=== PATIENT | male | born 1950 ===

== ENCOUNTER 2017-06-07 21:27 | Emergency (ER) | payer OTHER ==
[2017-06-07 21:37] VITALS: TEMP 98.4
[2017-06-07] MEDS ORDERED: Albuterol-Ipratrop 3 mg / 0.5 (3 ml) UD INH STA (22:12)
[2017-06-07 22:17] LABS: BASO % 0.6 % (0.0-2.0); EOS # 0.2 K/uL (0.0-0.7); EOS % 3.4 % (0.0-4.0); HEMOGLOBIN 12.4 g/dL (12.0-18.0); LYMPH # 1.8 K/uL (1.0-4.3); LYMPH % 35.2 % (20.0-40.0); MEAN CELL VOLUME 99.6 fl (80.0-94.0); MEAN CORPUSCULAR HEMOGLOBIN 33.2 pg (27.0-31.0); MEAN CORPUSCULAR HGB CONC 33.3 g/dL (33.0-37.0); MEAN PLATELET VOLUME 10.2 fl (7.2-11.7); MONO # 0.6 K/uL (0.0-0.8); MONO % 11.3 % (0.0-10.0); NEUT # 2.6 K/uL (1.8-7.0); NEUT % 49.5 % (50.0-75.0); NRBC % 0.1 % (0.0-0.0); RBC 3.74 Mil/uL (4.40-5.90); RED CELL DISTRIBUTION WIDTH 15.2 % (11.5-14.5); WHITE BLOOD COUNT 5.2 K/uL (4.8-10.8)
[2017-06-07 22:24] LABS: ALB/GLOB RATIO 1.1 (1.0-2.1); ALBUMIN 3.8 g/dL (3.5-5.0); ALT/SGPT 33 U/L (21-72); AST/SGOT 35 U/L (17-59); BLOOD UREA NITROGEN 8 mg/dl (9-20); CALCIUM 8.7 mg/dL (8.4-10.2); GFR AFRICAN-AMERICAN > 60; GFR NON-AFRICAN AMERICAN > 60
[2017-06-07 22:40] LABS: INR 1.1 (0.9-1.2); PARTIAL THROMBOPLASTIN TIME 25.8 Seconds (25.6-37.1); PROTHROMBIN TIME 12.1 Seconds (9.8-13.1)
--- NOTE | 2017-06-07 23:07 | ED PDOC ---
HPI: SOB/CHF/COPD Time Seen by Provider: 06/07/17 21:37 Chief Complaint (Nursing): High Blood Pressure Chief Complaint (Provider): shortness of breath, chest tightness History Per: Patient History/Exam Limitations: no limitations Onset/Duration Of Symptoms: Hrs (x1) Current Symptoms Are (Timing): Still Present Quality: Tightness Additional Complaint(s): 66 y/o male with a past medical history of hypertension and COPD ( noncompliant with medications), presents complaining of shortness of breath for 1 hour. States he developed acute sense of shortness of breath and chest tightness while at home. Reports hes had recent runny nose and cough for 2-3 days. No associated vomiting or diarrhea. States he does not take meds for COPD and hypertension, and has not followed up with any doctors since his last visit. PMD: None Past Medical History Reviewed: Historical Data, Nursing Documentation, Vital Signs Vital Signs: Last Vital Signs Temp 98.4 F 06/07/17 21:35 Pulse 85 06/08/17 00:18 Resp 18 06/08/17 00:18 BP 170/91 H 06/08/17 00:18 Pulse Ox 99 06/08/17 00:30 - Medical History PMH: COPD, HTN Denies: Chronic Kidney Disease - Surgical History Surgical History: No Surg Hx - Family History Family History: States: Unknown Family Hx - Social History Ex-Smoker (has not smoked in the last 12 months): Yes (previous 1 pack/day) - Home Medications Home Medications: Ambulatory Orders Medication Instructions Recorded Albuterol HFA [Ventolin HFA 90 1 puff IH Q4 PRN #1 puff 07/30/16 mcg/actuation (8 g)] Azithromycin [Zithromax] 250 mg PO DAILY #5 tab 07/30/16 Methylprednisolone [Medrol Dose 4 mg PO DAILY #21 mg 07/30/16 Pack (21 tabs)] amLODIPine [Norvasc] 5 mg PO DAILY #30 tab 07/30/16 Albuterol HFA [Ventolin HFA 90 1 - 2 puff IH Q6 PRN #1 inhaler 06/07/17 mcg/actuation (8 g)] amLODIPine [Norvasc] 5 mg PO QAM #30 tab 06/07/17 - Allergies Allergies/Adverse Reactions: Allergies Allergy/AdvReac Type Severity Reaction Status Date / Time No Known Allergies Allergy Verified 07/29/16 18:59 Review of Systems ROS Statement: Except As Marked, All Systems Reviewed And Found Negative Cardiovascular: Positive for: Chest Pain (tightness) Respiratory: Positive for: Cough, Shortness of Breath Gastrointestinal: Negative for: Nausea, Vomiting, Diarrhea Physical Exam - Reviewed Nursing Documentation Reviewed: Yes Vital Signs Reviewed: Yes - Physical Exam Appears: Positive for: Non-toxic, No Acute Distress Head Exam: Positive for: ATRAUMATIC, NORMAL INSPECTION, NORMOCEPHALIC Skin: Positive for: Normal Color, Warm, Dry. Negative for: Diaphoresis Eye Exam: Positive for: EOMI, Normal appearance, PERRL ENT: Positive for: Normal ENT Inspection Neck: Positive for: Normal, Painless ROM, Supple Cardiovascular/Chest: Positive for: Regular Rate, Rhythm. Negative for: Murmur Respiratory: Positive for: Wheezing (bilateral expiratory wheezing). Negative for: Respiratory Distress Gastrointestinal/Abdominal: Positive for: Normal Exam, Soft. Negative for: Tenderness Back: Positive for: Normal Inspection. Negative for: Vertebral Tenderness Extremity: Positive for: Normal ROM. Negative for: Pedal Edema, Deformity Neurologic/Psych: Positive for: Alert, Oriented (x3) - Laboratory Results Result Diagrams: 06/07/17 21:59 06/07/17 21:59 - ECG O2 Sat by Pulse Oximetry: 99 (RA) Pulse Ox Interpretation: Normal Medical Decision Making Medical Decision Making: Initial Impression: 66 year old male with shortness of breath in setting of known COPD and recent URI symptoms Time: 21:38 Initial Plan: --EKG --CMP --Tropnin I --CBC w/ differential --PTT --Prothrombin time --Influenza A B --Chest X-ray --Duoneb 3 ml INH --Peak Flow pre/post treatment --Reevaluation Reassess: --00:28 Labs reviewed and revealed no clinically significant abnormalities. Chest Xray NAD Patient reports of improvement of symptoms. Diagnosis: COPD, Hypertension Provider reinforced importance of following up with the clinic. Scribe Attestation: Documented by Yuki Blackwell, acting as a scribe for Dr. Michael Aranda MD. Provider Scribe Attestation: All medical record entries made by the Scribe were at my direction and personally dictated by me. I have reviewed the chart and agree that the record accurately reflects my personal performance of the history, physical exam, medical decision making, and the department course for this patient. I have also personally directed, reviewed, and agree with the discharge instructions and disposition. Disposition - Clinical Impression Clinical Impression: COPD (chronic obstructive pulmonary disease), Hypertension - Patient ED Disposition Is Patient to be Admitted: No - Disposition Referrals: [facility] [Outside] Disposition: Routine/Home Disposition Time: 00:28 Condition: IMPROVED Prescriptions: Albuterol HFA [Ventolin HFA 90 mcg/actuation (8 g)] 1 - 2 puff IH Q6 PRN #1 inhaler PRN Reason: Shortness Of Breath amLODIPine [Norvasc] 5 mg PO QAM #30 tab Instructions: COPD (Chronic Obstructive Pulmonary Disease) (ED), Hypertension ( ED) Forms: [employer] (Kosovan) Print Language: SOUTH KOREAN
[2017-06-08 00:18] VITALS: BP 170/91; PULSE 85; RESP 18
[2017-06-08 02:41] VITALS: O2SAT 96
--- NOTE | 2017-06-08 08:51 | RAD ---
HISTORY: chest pain COMPARISON: Chest radiograph dated 07/29/2016. TECHNIQUE: Chest PA and lateral FINDINGS: LUNGS: No active pulmonary disease. PLEURA: No significant pleural effusion identified. No pneumothorax apparent. CARDIOVASCULAR: Atherosclerotic aortic calcifications. Cardiomediastinal silhouette within normal limits. OSSEOUS STRUCTURES: Unchanged. VISUALIZED UPPER ABDOMEN: Normal. OTHER FINDINGS: None. IMPRESSION: No active disease.
== END 2017-06-08 00:20 | disposition home or self-care (01) ==
LOC: H.ER 21:27
DX: J44.9 Chronic obstructive pulmonary disease, unspecified (principal); I10 Essential (primary) hypertension; Z91.14 Patient's other noncompliance with medication regimen

== ENCOUNTER 2017-06-08 18:57 | Emergency (ER) | payer OTHER, SELFPAY ==
[2017-06-08 19:01] VITALS: RESP 16; TEMP 98.2
--- NOTE | 2017-06-08 20:02 | ED PDOC ---
HPI: Abdomen Time Seen by Provider: 06/08/17 19:17 Chief Complaint (Nursing): Abdominal Pain History Per: Patient History/Exam Limitations: no limitations Additional Complaint(s): 66 y/o male with a PMHx of HTN, psoriasis, former heavy smoker and COPD presents to ER c/o abdominal pain that began 2 hours ago after eating. Pain is described as constant, cira-umbilical, feels like a tight node 2/10 intensity, non-radiating and not aggravating. Pt reports previous similar episodes since 6 months ago, intermittent and when it occurs he believes it is caused by his elevated BP. -Pt was evaluated last night at this ER due to CP and SOB after a glass of "Lilibeth". Blood analysis, CXR and electrocardiogram were unremarkable. Pt was discharged with a Rx for Amlodipine, pt was unable to take medication as his pharmacy was closed today. -Pt stopped smoking 1 year ago, used to smoke 1 ppd since youth. -Pt aware of his HTN for a few years, took medication only for 15-20 days around 9 months ago. Pt denies fever, nausea, vomiting, CP, SOB, change in bowel movement, urinary complaints, eating out, recent travel or any ill contact. NO PMD. NKDA PMHx: HTN, COPD and psoriasis. PSHx: Open laparotomy after a severe trauma several years ago. FHx: Borther at 68 y/o of presumed [place]. SHx: former heavy smoker, alcohol every weekend: 2-3 glasses of hard liquor, denies recreational drug use. Past Medical History Vital Signs: Last Vital Signs Temp 98.2 F 06/08/17 18:59 Pulse 85 06/08/17 23:24 Resp 16 06/08/17 23:24 BP 158/95 H 06/08/17 23:24 Pulse Ox 100 06/08/17 23:54 - Medical History PMH: Asthma, COPD, HTN Denies: Chronic Kidney Disease Other PMH: Psoriasis. - Surgical History Other surgeries: Open laparotomy. - Family History Family History: States: Unknown Family Hx - Social History Ex-Smoker (has not smoked in the last 12 months): Yes Alcohol: Occasional Drugs: Denies - Home Medications Home Medications: Ambulatory Orders Medication Instructions Recorded Albuterol HFA [Ventolin HFA 90 1 puff IH Q4 PRN #1 puff 07/30/16 mcg/actuation (8 g)] Azithromycin [Zithromax] 250 mg PO DAILY #5 tab 07/30/16 Methylprednisolone [Medrol Dose 4 mg PO DAILY #21 mg 07/30/16 Pack (21 tabs)] amLODIPine [Norvasc] 5 mg PO DAILY #30 tab 07/30/16 Albuterol HFA [Ventolin HFA 90 1 - 2 puff IH Q6 PRN #1 inhaler 06/07/17 mcg/actuation (8 g)] amLODIPine [Norvasc] 5 mg PO QAM #30 tab 06/07/17 Famotidine [Pepcid] 20 mg PO Q12 #14 tab 06/08/17 - Allergies Allergies/Adverse Reactions: Allergies Allergy/AdvReac Type Severity Reaction Status Date / Time No Known Allergies Allergy Verified 07/29/16 18:59 Review of Systems Constitutional: Negative for: Fever, Chills, Weight loss Eyes: Negative for: Vision Change ENT: Negative for: Nose Congestion Cardiovascular: Negative for: Chest Pain, Palpitations, Orthopnea, Light Headedness Respiratory: Negative for: Shortness of Breath Gastrointestinal: Positive for: Abdominal Pain. Negative for: Nausea, Vomiting , Constipation, Hematochezia, Hematemesis Genitourinary Male: Negative for: Dysuria, Frequency, Incontinence Musculoskeletal: Negative for: Neck Pain Physical Exam - Physical Exam Appears: Positive for: Well, Non-toxic, No Acute Distress Head Exam: Positive for: ATRAUMATIC, NORMAL INSPECTION Eye Exam: Positive for: Normal appearance, EOMI, PERRL ENT: Positive for: Normal ENT Inspection Neck: Positive for: Normal, Painless ROM, Supple Cardiovascular/Chest: Positive for: Regular Rate, Rhythm Respiratory: Positive for: Normal Breath Sounds Gastrointestinal/Abdominal: Positive for: Bowel Sounds (Hyperactive.), Soft, Other (NO pulsating mass on palpation and auscultation. ). Negative for: Tenderness, Mass, Distended, Guarding, Rebound Extremity: Positive for: Normal ROM. Negative for: Calf Tenderness, Swelling - Laboratory Results Result Diagrams: 06/08/17 20:00 06/08/17 20:00 - ECG O2 Sat by Pulse Oximetry: 100 Medical Decision Making Medical Decision Makin66 y/o M with a PMHx of HTN, former smoker and COPD with abdominal pain. Plan: -CBC -CMP -PT/INR -PTT -CT scan of chest, abdomen and pelvis. 23:00 Pt reports feeling well, c/o of intermittent productive cough. Abdominal pain has resolved. -CBC, CMP, PT/INR and PTT were WNL. -CT of abdomen pelvis was unremarkable. CT of chest showed centrilobular emphysema. 23:52 Pt will be discharged, RX for Pepcid 20 mg provided. ER precautions discussed with pt. Pt instructed to initiate HTN medications promptly and ti set PCP care management. Case discussed with Dr Aranda. Cora PGY-1 Disposition - Clinical Impression Clinical Impression: Gastritis - Patient ED Disposition Is Patient to be Admitted: No - Disposition Disposition: Routine/Home Disposition Time: 23:55 Condition: GOOD Prescriptions: Famotidine [Pepcid] 20 mg PO Q12 #14 tab Instructions: Gastritis (ED) Forms: [facility] (Solomon Islander) Print Language: BRUNEIAN
[2017-06-08 20:03] LABS: BASO % 0.8 % (0.0-2.0); EOS # 0.3 K/uL (0.0-0.7); HEMOGLOBIN 13.2 g/dL (12.0-18.0); LYMPH # 1.6 K/uL (1.0-4.3); MEAN CELL VOLUME 100.9 fl (80.0-94.0); MEAN CORPUSCULAR HEMOGLOBIN 32.9 pg (27.0-31.0); MEAN CORPUSCULAR HGB CONC 32.6 g/dL (33.0-37.0); MEAN PLATELET VOLUME 8.9 fl (7.2-11.7); MONO # 0.8 K/uL (0.0-0.8); MONO % 13.1 % (0.0-10.0); NEUT # 3.6 K/uL (1.8-7.0); NEUT % 57.1 % (50.0-75.0); NRBC % 0.1 % (0.0-0.0); RBC 4.01 Mil/uL (4.40-5.90); RED CELL DISTRIBUTION WIDTH 14.5 % (11.5-14.5); WHITE BLOOD COUNT 6.3 K/uL (4.8-10.8)
[2017-06-08 20:28] LABS: INR 1.1 (0.9-1.2); PARTIAL THROMBOPLASTIN TIME 33.2 Seconds (25.6-37.1)
[2017-06-08 20:29] LABS: ALB/GLOB RATIO 1.1 (1.0-2.1); ALBUMIN 3.7 g/dL (3.5-5.0); BLOOD UREA NITROGEN 13 mg/dl (9-20); LIPASE 207 U/L (23-300)
[2017-06-08 20:30] LABS: CALCIUM 8.9 mg/dL (8.4-10.2); GFR AFRICAN-AMERICAN > 60; GFR NON-AFRICAN AMERICAN > 60
[2017-06-08 20:31] LABS: ALT/SGPT 35 U/L (21-72); AST/SGOT 32 U/L (17-59)
[2017-06-08] MEDS ORDERED: Sodium Chloride 0.9% 50 ML IV ONE (20:36)
[2017-06-08] MEDS ORDERED: Iohexol 300 100 ML IJ ONE (20:36)
--- NOTE | 2017-06-08 21:41 | CT ---
EXAM: CT Abdomen and Pelvis With Intravenous Contrast CLINICAL HISTORY: 66 years old, male; Pain; Abdominal pain; Other: Epigastric; Additional info: Epigastric pain, hypertension TECHNIQUE: Axial computed tomography images of the abdomen and pelvis with intravenous contrast. All CT scans at this facility use one or more dose reduction techniques, viz.: automated exposure control; ma/kV adjustment per patient size (including targeted exams where dose is matched to indication; i.e. head); or iterative reconstruction technique. Coronal and sagittal reformatted images were created and reviewed. CONTRAST: 99 mL of OMNIPAQUE 300 administered intravenously. COMPARISON: No relevant prior studies available. FINDINGS: Liver: No acute abnormality as visualized. Gallbladder and bile ducts: No acute abnormality as visualized. Pancreas: No acute abnormality as visualized. Spleen: No splenomegaly. Adrenals: No acute abnormality as visualized. Kidneys and ureters: 4.5 x 3.5 cm right parapelvic cyst or extrarenal pelvis. 13 mm right renal hypoattenuating lesion, does not appear to represent a simple cyst. Further evaluation can be performed with ultrasound. Symmetric emhancement. No hydronephrosis. Stomach and bowel: Significantly limited evaluation of bowel without enteric contrast. Areas of apparent bowel wall prominence may be due to lack of distention, cannot exclude inflammation. No small bowel obstruction. Appendix not clearly identified. Bladder: No acute abnormality as visualized. Reproductive: Prominent prostate. Correlate clinically. Intraperitoneal space: No free air. No significant fluid collection. Bones: Degenerative changes. Vasculature: Atherosclerosis. No abdominal aortic aneurysm. IMPRESSION: Significantly limited evaluation of bowel without enteric contrast. Areas of apparent bowel wall prominence may be due to lack of distention, cannot exclude inflammation. 4.5 x 3.5 cm right parapelvic cyst or extrarenal pelvis. 13 mm right renal hypoattenuating lesion, does not appear to represent a simple cyst. Further evaluation can be performed with ultrasound. Prominent prostate. Correlate clinically. Additional details/findings as above. EXAM: CT Chest With Intravenous Contrast CLINICAL HISTORY: 66 years old, male; Pain; Abdominal pain; Other: Epigastric; Additional info: Epigastric pain, hypertension TECHNIQUE: Axial computed tomography images of the chest with intravenous contrast. All CT scans at this facility use one or more dose reduction techniques, viz.: automated exposure control; ma/kV adjustment per patient size (including targeted exams where dose is matched to indication; i.e. head); or iterative reconstruction technique. Coronal and sagittal reformatted images were created and reviewed. CONTRAST: 99 mL of OMNIPAQUE 300 administered intravenously. COMPARISON: No relevant prior studies available. FINDINGS: Lungs: Centrilobular emphysema, findings greatest in the lung apices. Atelectasis/scarring. Minimal pleural irregularity/nodularity, may be on the basis of scarring. 3 mm nodule in the right upper lobe, series 4 image 32. No consolidation. Pleural space: No pneumothorax. No significant effusion. Heart: No cardiomegaly. No significant pericardial effusion. Bones: Degenerative changes. No acute fracture. Vasculature: Atherosclerosis. No thoracic aortic aneurysm. Lymph nodes: Shotty nodes. IMPRESSION: Centrilobular emphysema, findings greatest in the lung apices. Atelectasis/scarring. Minimal pleural irregularity/nodularity, may be on the basis of scarring. 3 mm nodule in the right upper lobe, series 4 image 32. Additional details/findings as above.
[2017-06-09 01:16] VITALS: BP 170/108; PULSE 73; O2SAT 96
== END 2017-06-09 01:17 | disposition home or self-care (01) ==
LOC: H.ER 18:57
DX: K29.70 Gastritis, unspecified, without bleeding (principal); J44.9 Chronic obstructive pulmonary disease, unspecified; I10 Essential (primary) hypertension; J43.2 Centrilobular emphysema; Z87.891 Personal history of nicotine dependence
CPT/HCPCS: 71260; 74177; 80053; 83690; 84484; 85025; 85610; 85730; 99283; Q9967

== ENCOUNTER 2017-06-10 09:32 | Emergency (ER) | payer SELFPAY ==
[2017-06-10 09:50] VITALS: BMI 22.9
[2017-06-10 09:51] VITALS: RESP 17; TEMP 98.8; O2SAT 96
--- NOTE | 2017-06-10 10:44 | ED PDOC ---
HPI: Abdomen Time Seen by Provider: 06/10/17 09:45 Chief Complaint (Nursing): Abdominal Pain Chief Complaint (Provider): Abdominal Pain History Per: Patient History/Exam Limitations: no limitations Onset/Duration Of Symptoms: Days (x 1) Current Symptoms Are (Timing): Still Present Location Of Pain/Discomfort: Diffuse Additional Complaint(s): Daniel is a 66 y/o male with a history of COPD, hypertension, and gastritis presents to the ED c/o diffuse abdominal pain in the mid-epigastric region. Patient also complains of associated nausea and subjective fever. He denies vomiting or diarrhea. PMD: None Past Medical History Vital Signs: Last Vital Signs Temp 98.8 F 06/10/17 09:50 Pulse 80 06/10/17 13:59 Resp 17 06/10/17 09:50 BP 150/80 06/10/17 13:59 Pulse Ox 96 06/10/17 13:07 - Medical History PMH: Asthma, COPD, Gastritis, HTN Denies: Chronic Kidney Disease - Family History Family History: States: Unknown Family Hx - Home Medications Home Medications: Ambulatory Orders Medication Instructions Recorded Albuterol HFA [Ventolin HFA 90 1 puff IH Q4 PRN #1 puff 07/30/16 mcg/actuation (8 g)] Azithromycin [Zithromax] 250 mg PO DAILY #5 tab 07/30/16 Methylprednisolone [Medrol Dose 4 mg PO DAILY #21 mg 07/30/16 Pack (21 tabs)] amLODIPine [Norvasc] 5 mg PO DAILY #30 tab 07/30/16 Albuterol HFA [Ventolin HFA 90 1 - 2 puff IH Q6 PRN #1 inhaler 06/07/17 mcg/actuation (8 g)] amLODIPine [Norvasc] 5 mg PO QAM #30 tab 06/07/17 Famotidine [Pepcid] 20 mg PO Q12 #14 tab 06/08/17 - Allergies Allergies/Adverse Reactions: Allergies Allergy/AdvReac Type Severity Reaction Status Date / Time No Known Allergies Allergy Verified 07/29/16 18:59 Review of Systems ROS Statement: Except As Marked, All Systems Reviewed And Found Negative Constitutional: Positive for: Fever (subjective) Gastrointestinal: Positive for: Nausea, Abdominal Pain (diffuse, mid epigastric region). Negative for: Vomiting, Diarrhea Physical Exam - Reviewed Nursing Documentation Reviewed: Yes Vital Signs Reviewed: Yes - Physical Exam Appears: Positive for: Non-toxic, No Acute Distress Head Exam: Positive for: ATRAUMATIC, NORMAL INSPECTION, NORMOCEPHALIC Skin: Positive for: Normal Color, Warm, Dry Eye Exam: Positive for: Normal appearance Neck: Positive for: Normal, Painless ROM, Supple Cardiovascular/Chest: Positive for: Regular Rate, Rhythm. Negative for: Murmur Respiratory: Positive for: Normal Breath Sounds. Negative for: Respiratory Distress Gastrointestinal/Abdominal: Positive for: Soft, Tenderness (mild epigastric; no RUQ or lower abdomen tenderness) Extremity: Positive for: Normal ROM. Negative for: Pedal Edema, Deformity Neurologic/Psych: Positive for: Alert, Oriented - Laboratory Results Result Diagrams: 06/10/17 10:56 06/10/17 10:56 - ECG O2 Sat by Pulse Oximetry: 96 (RA) Pulse Ox Interpretation: Normal Medical Decision Making Medical Decision Making: Time: 10:22 Initial Impression: Rule out flu, gastritis, pancreatitis Initial Plan: --CMP --Lipase --CBC --Chest XR --Pepcid --Zofran --Influenza A B Time: 10:42 CHEST XR FINDINGS: LUNGS: Hyperinflation, manifestations of COPD. No active pulmonary disease. PLEURA: No significant pleural effusion identified. No pneumothorax apparent. CARDIOVASCULAR: Normal. OSSEOUS STRUCTURES: No significant abnormalities. VISUALIZED UPPER ABDOMEN: Normal. OTHER FINDINGS: None. IMPRESSION: No active disease. No significant interval change compared to the prior examination(s). Time: 10:56 --Patient negative for flu Time: 12:03 --Catapres ordered for blood pressure Time: 13:00 --Patient reports feeling better. bp imporved. he tolerated po. He is stable for discharge home Scribe Attestation: Documented by Damir Betts, acting as a scribe for Pawan Mcgill MD. Provider Scribe Attestation: All medical record entries made by the Scribe were at my direction and personally dictated by me. I have reviewed the chart and agree that the record accurately reflects my personal performance of the history, physical exam, medical decision making, and the department course for this patient. I have also personally directed, reviewed, and agree with the discharge instructions and disposition. Disposition - Clinical Impression Clinical Impression: HTN (hypertension), Nausea - Patient ED Disposition Is Patient to be Admitted: No Counseled Patient/Family Regarding: Studies Performed, Diagnosis, Need For Followup - Disposition Referrals: [facility] [Outside] [facility] [Outside] Disposition: Routine/Home Disposition Time: 12:40 Condition: IMPROVED Additional Instructions: follow up with your primary doctor in 1-2 days return to the ED with any worsening or concerning symptoms. Instructions: Chronic Hypertension (ED) Forms: [facility] (Eritrean) Print Language: MALAY
[2017-06-10 11:07] LABS: BASO % 0.7 % (0.0-2.0); EOS # 0.2 K/uL (0.0-0.7); EOS % 3.6 % (0.0-4.0); HEMOGLOBIN 13.2 g/dL (12.0-18.0); LYMPH # 0.6 K/uL (1.0-4.3); LYMPH % 10.6 % (20.0-40.0); MEAN CELL VOLUME 99.6 fl (80.0-94.0); MEAN CORPUSCULAR HEMOGLOBIN 33.1 pg (27.0-31.0); MEAN CORPUSCULAR HGB CONC 33.2 g/dL (33.0-37.0); MEAN PLATELET VOLUME 9.2 fl (7.2-11.7); MONO # 0.9 K/uL (0.0-0.8); MONO % 15.8 % (0.0-10.0); NEUT # 3.8 K/uL (1.8-7.0); NEUT % 69.3 % (50.0-75.0); NRBC % 0.1 % (0.0-0.0); RED CELL DISTRIBUTION WIDTH 14.7 % (11.5-14.5); WHITE BLOOD COUNT 5.6 K/uL (4.8-10.8)
[2017-06-10 11:34] LABS: ALB/GLOB RATIO 1.1 (1.0-2.1); ALBUMIN 3.8 g/dL (3.5-5.0); ALT/SGPT 39 U/L (21-72); AST/SGOT 36 U/L (17-59); BLOOD UREA NITROGEN 8 mg/dl (9-20); GFR AFRICAN-AMERICAN > 60; GFR NON-AFRICAN AMERICAN > 60; LIPASE 102 U/L (23-300)
[2017-06-10 14:00] VITALS: BP 150/80; PULSE 80
== END 2017-06-10 14:11 | disposition home or self-care (01) ==
LOC: H.ER 09:32
DX: I10 Essential (primary) hypertension (principal); R11.0 Nausea; J44.9 Chronic obstructive pulmonary disease, unspecified; J45.909 Unspecified asthma, uncomplicated
CPT/HCPCS: 71046; 80053; 83690; 85025; 87804; 96374; 99283; J2405

== ENCOUNTER 2017-06-29 17:54 | Emergency (ER) | payer SELFPAY ==
[2017-06-29 17:54] VITALS: BMI 22.9
[2017-06-29 17:56] VITALS: RESP 18; TEMP 98.2; O2SAT 98
[2017-06-29 20:05] LABS: BASO % 0.6 % (0.0-2.0); EOS # 0.2 K/uL (0.0-0.7); EOS % 3.1 % (0.0-4.0); HEMOGLOBIN 12.8 g/dL (12.0-18.0); LYMPH # 1.7 K/uL (1.0-4.3); LYMPH % 36.1 % (20.0-40.0); MEAN CELL VOLUME 100.4 fl (80.0-94.0); MEAN CORPUSCULAR HEMOGLOBIN 32.5 pg (27.0-31.0); MEAN CORPUSCULAR HGB CONC 32.4 g/dL (33.0-37.0); MEAN PLATELET VOLUME 9.3 fl (7.2-11.7); MONO # 0.7 K/uL (0.0-0.8); MONO % 14.3 % (0.0-10.0); NEUT # 2.2 K/uL (1.8-7.0); NEUT % 45.9 % (50.0-75.0); NRBC % 0.1 % (0.0-0.0); RBC 3.94 Mil/uL (4.40-5.90); RED CELL DISTRIBUTION WIDTH 13.7 % (11.5-14.5); WHITE BLOOD COUNT 4.8 K/uL (4.8-10.8)
--- NOTE | 2017-06-29 20:12 | ED PDOC ---
HPI: Hypertension/Hypotension Time Seen by Provider: 06/29/17 18:12 Chief Complaint (Nursing): High Blood Pressure Chief Complaint (Provider): High Blood Pressure History Per: Patient History/Exam Limitations: no limitations Onset/Duration Of Symptoms: Hrs Current Symptoms Are (Timing): Still Present Additional Complaint(s): Daniel Ortiz is a 66 year old male with a history of hypertension that presents to the ED with a chief complaint of high blood pressure. Patient reports that he felt as though his blood pressure was high, so he called an ambulance. He denies any chest pain, shortness of breath, headache, weakness, or paresthesias. Patient reports he is compliant with his Norvasc. Past Medical History Reviewed: Historical Data, Nursing Documentation, Vital Signs Vital Signs: Last Vital Signs Temp 98.2 F 06/29/17 17:55 Pulse 81 06/29/17 17:55 Resp 18 06/29/17 17:55 BP 154/103 H 06/29/17 17:55 Pulse Ox 98 06/29/17 17:55 - Medical History PMH: Asthma, COPD, Gastritis, HTN Denies: Chronic Kidney Disease - Family History Family History: States: Unknown Family Hx - Immunization History Hx Tetanus Toxoid Vaccination: No Hx Influenza Vaccination: No Hx Pneumococcal Vaccination: No - Home Medications Home Medications: Ambulatory Orders Medication Instructions Recorded Albuterol HFA [Ventolin HFA 90 1 puff IH Q4 PRN #1 puff 07/30/16 mcg/actuation (8 g)] Azithromycin [Zithromax] 250 mg PO DAILY #5 tab 07/30/16 Methylprednisolone [Medrol Dose 4 mg PO DAILY #21 mg 07/30/16 Pack (21 tabs)] amLODIPine [Norvasc] 5 mg PO DAILY #30 tab 07/30/16 Albuterol HFA [Ventolin HFA 90 1 - 2 puff IH Q6 PRN #1 inhaler 06/07/17 mcg/actuation (8 g)] amLODIPine [Norvasc] 5 mg PO QAM #30 tab 06/07/17 Famotidine [Pepcid] 20 mg PO Q12 #14 tab 06/08/17 Albuterol HFA [Ventolin HFA 90 2 puff IH [id number] PRN #1 bottle 06/29/17 mcg/actuation (8 g)] Famotidine [Pepcid] 20 mg PO BID #20 tab 06/29/17 amLODIPine [Norvasc] 5 mg PO DAILY #14 tab 06/29/17 - Allergies Allergies/Adverse Reactions: Allergies Allergy/AdvReac Type Severity Reaction Status Date / Time No Known Allergies Allergy Verified 07/29/16 18:59 Review of Systems Constitutional: Positive for: Other (high blood pressure). Negative for: Weakness Cardiovascular: Negative for: Chest Pain Respiratory: Negative for: Shortness of Breath Neurological: Negative for: Weakness, Headache, Other (denies paresthesias) Physical Exam - Reviewed Nursing Documentation Reviewed: Yes Vital Signs Reviewed: Yes - Physical Exam Appears: Positive for: Non-toxic, No Acute Distress Head Exam: Positive for: ATRAUMATIC, NORMOCEPHALIC Skin: Positive for: Normal Color, Warm Eye Exam: Positive for: Normal appearance, EOMI, PERRL Neck: Positive for: Normal, Supple Cardiovascular/Chest: Positive for: Regular Rate, Rhythm. Negative for: Murmur Respiratory: Positive for: Normal Breath Sounds. Negative for: Wheezing Gastrointestinal/Abdominal: Positive for: Normal Exam, Soft. Negative for: Tenderness Back: Positive for: Normal Inspection. Negative for: L CVA Tenderness, R CVA Tenderness Extremity: Positive for: Normal ROM. Negative for: Pedal Edema, Deformity, Swelling Neurologic/Psych: Positive for: Alert, Oriented. Negative for: Motor/Sensory Deficits - Laboratory Results Result Diagrams: 06/29/17 19:51 06/29/17 19:51 - ECG Interpretation Of ECG: NSR @ 66, no ST-T changes. O2 Sat by Pulse Oximetry: 98 (RA) Pulse Ox Interpretation: Normal - Radiology X-Ray: Interpreted by Me X-Ray Interpretation: No Acute Disease Medical Decision Making Medical Decision Making: Impression: High Blood Pressure Plan: * EKG * CMP * CBC * Urinalysis * Urine dip * Reevaluation Scribe Attestation: Documented by Jaclyn Decker, acting as a scribe for Alma Brand MD. Provider Scribe Attestation: All medical record entries made by the Scribe were at my direction and personally dictated by me. I have reviewed the chart and agree that the record accurately reflects my personal performance of the history, physical exam, medical decision making, and the department course for this patient. I have also personally directed, reviewed, and agree with the discharge instructions and disposition. Disposition - Clinical Impression Clinical Impression: Hypertension - Disposition Referrals: [facility] [Outside] Disposition: Routine/Home Disposition Time: 21:58 Condition: STABLE Prescriptions: Albuterol HFA [Ventolin HFA 90 mcg/actuation (8 g)] 2 puff IH [id number] PRN #1 bottle PRN Reason: Shortness Of Breath amLODIPine [Norvasc] 5 mg PO DAILY #14 tab Famotidine [Pepcid] 20 mg PO BID #20 tab Instructions: Hypertension (ED) Forms: [employer] (Armenian) Print Language: FAROESE
[2017-06-29 20:19] LABS: ALB/GLOB RATIO 1.1 (1.0-2.1); ALBUMIN 3.8 g/dL (3.5-5.0); ALT/SGPT 34 U/L (21-72); AST/SGOT 34 U/L (17-59); BLOOD UREA NITROGEN 11 mg/dl (9-20); CALCIUM 9.1 mg/dL (8.4-10.2); GFR AFRICAN-AMERICAN > 60; GFR NON-AFRICAN AMERICAN > 60
[2017-06-29 20:47] LABS: URINE BILIRUBIN NEGATIVE (NEGATIVE); URINE BLOOD SMALL (NEGATIVE); URINE CLARITY CLEAR (Clear); URINE COLOR STRAW (YELLOW); URINE GLUCOSE (UA) NEG (Normal); URINE LEUKOCYTE ESTERASE NEG Leu/uL (Negative); URINE NITRATE NEGATIVE (NEGATIVE); URINE PROTEIN NEGATIVE (NEGATIVE); URINE UROBILINOGEN 0.2-1.0 mg/dL (0.2-1.0)
[2017-06-29 22:10] VITALS: BP 157/86; PULSE 83
--- NOTE | 2017-06-30 09:15 | RAD ---
HISTORY: HTN COMPARISON: Comparison made with chest radiograph and CT scan chest dated 06/10/2017 and 06/08/2017 respectively. TECHNIQUE: Chest PA and lateral FINDINGS: LUNGS: Lung romero appear hyperinflated with flattened diaphragms consistent with emphysema. Mild left basilar atelectasis and or scarring. PLEURA: No significant pleural effusion identified. No pneumothorax apparent. CARDIOVASCULAR: Normal. OSSEOUS STRUCTURES: No significant abnormalities. VISUALIZED UPPER ABDOMEN: Normal. OTHER FINDINGS: None. IMPRESSION: Lung romero appear hyperinflated with flattened diaphragms consistent with emphysema. Mild left basilar atelectasis and or scarring.
--- NOTE | 2017-06-30 12:22 | CARD ---
APPROVED REPORT EKG Measurement Heart [id number] [id number] <Conclusion> Normal sinus rhythm Normal ECG
== END 2017-06-29 22:20 | disposition home or self-care (01) ==
LOC: H.ER 17:54
DX: I10 Essential (primary) hypertension (principal); J44.9 Chronic obstructive pulmonary disease, unspecified

== ENCOUNTER 2017-07-24 22:41 | Emergency (ER) | payer SELFPAY ==
[2017-07-24 22:42] VITALS: BMI 22.9
[2017-07-24 22:59] VITALS: RESP 16; TEMP 97.8; O2SAT 96
[2017-07-25 00:01] LABS: BASO % 0.8 % (0.0-2.0); EOS # 0.2 K/uL (0.0-0.7); EOS % 3.3 % (0.0-4.0); HEMOGLOBIN 13.5 g/dL (12.0-18.0); LYMPH # 1.8 K/uL (1.0-4.3); LYMPH % 30.9 % (20.0-40.0); MEAN CELL VOLUME 100.4 fl (80.0-94.0); MEAN CORPUSCULAR HEMOGLOBIN 33.6 pg (27.0-31.0); MEAN CORPUSCULAR HGB CONC 33.5 g/dL (33.0-37.0); MEAN PLATELET VOLUME 8.8 fl (7.2-11.7); MONO # 0.6 K/uL (0.0-0.8); MONO % 11.3 % (0.0-10.0); NEUT # 3.1 K/uL (1.8-7.0); NEUT % 53.7 % (50.0-75.0); RBC 4.01 Mil/uL (4.40-5.90); RED CELL DISTRIBUTION WIDTH 14.2 % (11.5-14.5); WHITE BLOOD COUNT 5.7 K/uL (4.8-10.8)
[2017-07-25 00:16] LABS: URINE BILIRUBIN NEGATIVE (NEGATIVE); URINE BLOOD SMALL (NEGATIVE); URINE CLARITY CLEAR (Clear); URINE COLOR STRAW (YELLOW); URINE GLUCOSE (UA) NEG (Normal); URINE LEUKOCYTE ESTERASE NEG Leu/uL (Negative); URINE PROTEIN NEGATIVE (NEGATIVE); URINE UROBILINOGEN 0.2-1.0 mg/dL (0.2-1.0)
[2017-07-25 00:17] LABS: ALB/GLOB RATIO 1.2 (1.0-2.1); ALT/SGPT 37 U/L (21-72); AST/SGOT 39 U/L (17-59); BLOOD UREA NITROGEN 21 mg/dl (9-20); CALCIUM 9.3 mg/dL (8.4-10.2); GFR AFRICAN-AMERICAN > 60; GFR NON-AFRICAN AMERICAN > 60; LIPASE 246 U/L (23-300)
--- NOTE | 2017-07-25 00:25 | ED PDOC ---
HPI: Abdomen Time Seen by Provider: 07/24/17 23:23 Chief Complaint (Nursing): Abdominal Pain Chief Complaint (Provider): Abdominal Pain History Per: Patient History/Exam Limitations: no limitations Onset/Duration Of Symptoms: Hrs (x2) Current Symptoms Are (Timing): Still Present Context: Food Location Of Pain/Discomfort: Epigastric Associated Symptoms: denies: Nausea, Vomiting, Diarrhea Additional Complaint(s): 66 year old male presents to ED with complaints of abdominal pain x2 hours and has a past medical history of COPD, HTN, and gastritis (non-compliant with medications and follow-up). Patient notes epigastric pain after evening meal. (- ) nausea, vomiting, or diarrhea. PCP: None Past Medical History Reviewed: Historical Data, Nursing Documentation, Vital Signs Vital Signs: Last Vital Signs Temp 97.8 F 07/24/17 22:55 Pulse 78 07/24/17 22:55 Resp 16 07/24/17 22:55 BP 157/90 H 07/24/17 22:55 Pulse Ox 96 07/25/17 00:32 - Medical History PMH: Asthma, COPD, Gastritis, HTN Denies: Chronic Kidney Disease - Family History Family History: States: Unknown Family Hx - Social History Current smoker - smoking cessation education provided: Yes (2 packs QD) Alcohol: Social (weekly on weekends) - Immunization History Hx Tetanus Toxoid Vaccination: No Hx Influenza Vaccination: No Hx Pneumococcal Vaccination: No - Home Medications Home Medications: Ambulatory Orders Medication Instructions Recorded Albuterol HFA [Ventolin HFA 90 1 puff IH Q4 PRN #1 puff 07/30/16 mcg/actuation (8 g)] Azithromycin [Zithromax] 250 mg PO DAILY #5 tab 07/30/16 Methylprednisolone [Medrol Dose 4 mg PO DAILY #21 mg 07/30/16 Pack (21 tabs)] amLODIPine [Norvasc] 5 mg PO DAILY #30 tab 07/30/16 Albuterol HFA [Ventolin HFA 90 1 - 2 puff IH Q6 PRN #1 inhaler 06/07/17 mcg/actuation (8 g)] amLODIPine [Norvasc] 5 mg PO QAM #30 tab 06/07/17 Famotidine [Pepcid] 20 mg PO Q12 #14 tab 06/08/17 Albuterol HFA [Ventolin HFA 90 2 puff IH [id number] PRN #1 bottle 06/29/17 mcg/actuation (8 g)] Famotidine [Pepcid] 20 mg PO BID #20 tab 06/29/17 amLODIPine [Norvasc] 5 mg PO DAILY #14 tab 06/29/17 Famotidine [Pepcid] 20 mg PO Q12 #14 tab 07/25/17 - Allergies Allergies/Adverse Reactions: Allergies Allergy/AdvReac Type Severity Reaction Status Date / Time No Known Allergies Allergy Verified 07/29/16 18:59 Review of Systems ROS Statement: Except As Marked, All Systems Reviewed And Found Negative Gastrointestinal: Positive for: Abdominal Pain (epigastric). Negative for: Nausea, Vomiting, Diarrhea Physical Exam - Reviewed Nursing Documentation Reviewed: Yes Vital Signs Reviewed: Yes - Physical Exam Appears: Positive for: Non-toxic, No Acute Distress Skin: Positive for: Normal Color, Warm, Dry Eye Exam: Positive for: Normal appearance Cardiovascular/Chest: Positive for: Regular Rate, Rhythm. Negative for: Murmur Respiratory: Positive for: Normal Breath Sounds. Negative for: Respiratory Distress Gastrointestinal/Abdominal: Positive for: Soft, Tenderness (epigastric tenderness). Negative for: Normal Exam Neurologic/Psych: Positive for: Alert, Oriented. Negative for: Motor/Sensory Deficits - Laboratory Results Result Diagrams: 07/24/17 23:55 07/24/17 23:55 - ECG O2 Sat by Pulse Oximetry: 96 (RA) Pulse Ox Interpretation: Normal Medical Decision Making Medical Decision Makin Initial impression: epigastric pain Initial plan: * EKG * Labs * Lipase * Pepcid 20mg IV * Toradol 15mg IVP * UA * Re-eval 0257 Labs reviewed: no clinically significant abnormalities. Patient is stable for discharge home. Patient will follow up with PCP in 1-2 days. Return precautions given. Dx: gastritis Condition: stable Scribe Attestation: Documented by Elisabeth Vasques acting as a scribe for Michael Aranda MD. Scribe Attestation: All medical record entries made by the Scribe were at my direction and personally dictated by me. I have reviewed the chart and agree that the record accurately reflects my personal performance of the history, physical exam, medical decision making, and the department course for this patient. I have also personally directed, reviewed, and agree with the discharge instructions and disposition. Disposition - Clinical Impression Clinical Impression: Gastritis - Disposition Disposition: Routine/Home Disposition Time: 02:57 Condition: STABLE Prescriptions: Famotidine [Pepcid] 20 mg PO Q12 #14 tab Instructions: Gastritis Forms: [facility] (Cameroonian) Print Language: DANISH
[2017-07-25 04:03] VITALS: BP 146/72; PULSE 82
--- NOTE | 2017-07-25 18:05 | CARD ---
APPROVED REPORT EKG Measurement Heart [id number] <Conclusion> Normal sinus rhythm Normal ECG
== END 2017-07-25 04:04 | disposition home or self-care (01) ==
LOC: H.ER 22:41
DX: K29.70 Gastritis, unspecified, without bleeding (principal); I10 Essential (primary) hypertension; J44.9 Chronic obstructive pulmonary disease, unspecified; F17.200 Nicotine dependence, unspecified, uncomplicated
CPT/HCPCS: 80053; 81003; 83690; 85025; 93005; 96374; 96375; 99283; J1885

== ENCOUNTER 2018-06-07 19:56 | Emergency (ER) | payer SELFPAY, BC ==
[2018-06-07 19:56] VITALS: BMI 22.9
[2018-06-07 20:01] VITALS: BP 121/66; PULSE 78; RESP 18; TEMP 98.4; O2SAT 99
[2018-06-07 21:46] LABS: BASO % 0.6 % (0.0-2.0); EOS # 0.1 K/uL (0.0-0.7); EOS % 1.8 % (0.0-4.0); HEMOGLOBIN 13.8 g/dL (12.0-18.0); LYMPH # 1.5 K/uL (1.0-4.3); MEAN CELL VOLUME 92.3 fl (80.0-94.0); MEAN CORPUSCULAR HEMOGLOBIN 30.8 pg (27.0-31.0); MEAN CORPUSCULAR HGB CONC 33.3 g/dL (33.0-37.0); MEAN PLATELET VOLUME 8.8 fl (7.2-11.7); MONO # 0.5 K/uL (0.0-0.8); MONO % 11.5 % (0.0-10.0); NEUT # 2.3 K/uL (1.8-7.0); NEUT % 52.1 % (50.0-75.0); NRBC % 0.1 % (0.0-0.0); RBC 4.5 Mil/uL (4.40-5.90); RED CELL DISTRIBUTION WIDTH 12.7 % (11.5-14.5); WHITE BLOOD COUNT 4.5 K/uL (4.8-10.8)
[2018-06-07 21:58] LABS: ALB/GLOB RATIO 1.2 (1.0-2.1); ALBUMIN 4.4 g/dL (3.5-5.0); ALT/SGPT 21 U/L (21-72); AST/SGOT 30 U/L (17-59); BLOOD UREA NITROGEN 12 mg/dl (9-20); CALCIUM 9.4 mg/dL (8.4-10.2); GFR NON-AFRICAN AMERICAN > 60; LIPASE 176 U/L (23-300)
--- NOTE | 2018-06-07 22:08 | ED PDOC ---
HPI: Abdomen Time Seen by Provider: 06/07/18 20:27 Chief Complaint (Nursing): Abdominal Pain Chief Complaint (Provider): Abdominal Pain History Per: Patient, [employer] Work (Patrick #[id number] ) History/Exam Limitations: no limitations Onset/Duration Of Symptoms: Days (months), Persistent Location Of Pain/Discomfort: Diffuse, Epigastric Quality Of Discomfort: "Pain" Associated Symptoms: denies: Nausea, Vomiting, Diarrhea, Constipation Additional Complaint(s): 67 year old male with a history of HTN and alcohol abuse presents to the ED with abdominal pain that he has had for months. Pain is worst in epigastric region and occasionally radiates into his chest and back. It is not associated with nausea, vomiting, diarrhea or constipation. He states that he is visiting the ED because he started to have chest pain along with this abdominal pain. Currently reports no pain and admits to drinking today. He is scheduled for an ultrasound and regularly follows up with Dr. Pappas. PMD: Dr. Pappas Past Medical History Reviewed: Historical Data, Nursing Documentation, Vital Signs Vital Signs: Last Vital Signs Temp 98.4 F 06/07/18 19:59 Pulse 78 06/07/18 19:59 Resp 18 06/07/18 19:59 BP 121/66 06/07/18 19:59 Pulse Ox 99 06/07/18 19:59 - Medical History PMH: Asthma, COPD, Gastritis, HTN Denies: Chronic Kidney Disease - Surgical History Surgical History: No Surg Hx - Family History Family History: States: Unknown Family Hx - Social History Alcohol: > 2 Drinks/Day Drugs: Denies - Immunization History Hx Tetanus Toxoid Vaccination: No Hx Influenza Vaccination: No Hx Pneumococcal Vaccination: No - Home Medications Home Medications: Ambulatory Orders Medication Instructions Recorded Albuterol HFA [Ventolin HFA 90 1 puff IH Q4 PRN #1 puff 07/30/16 mcg/actuation (8 g)] Azithromycin [Zithromax] 250 mg PO DAILY #5 tab 07/30/16 Methylprednisolone [Medrol Dose 4 mg PO DAILY #21 mg 07/30/16 Pack (21 tabs)] amLODIPine [Norvasc] 5 mg PO DAILY #30 tab 07/30/16 Albuterol HFA [Ventolin HFA 90 1 - 2 puff IH Q6 PRN #1 inhaler 01/13/18 mcg/actuation (8 g)] amLODIPine [Norvasc] 5 mg PO QAM #30 tab 06/07/17 Famotidine [Pepcid] 20 mg PO Q12 #14 tab 06/08/17 Albuterol HFA [Ventolin HFA 90 2 puff IH [id number] PRN #1 bottle 06/29/17 mcg/actuation (8 g)] Famotidine [Pepcid] 20 mg PO BID #20 tab 06/29/17 amLODIPine [Norvasc] 5 mg PO DAILY #14 tab 06/29/17 Famotidine [Pepcid] 20 mg PO Q12 #14 tab 07/25/17 Omeprazole 20 mg PO DAILY #30 capsule. 06/07/18 - Allergies Allergies/Adverse Reactions: Allergies Allergy/AdvReac Type Severity Reaction Status Date / Time No Known Allergies Allergy Verified 07/29/16 18:59 Review of Systems ROS Statement: Except As Marked, All Systems Reviewed And Found Negative Cardiovascular: Positive for: Chest Pain Gastrointestinal: Positive for: Abdominal Pain. Negative for: Nausea, Vomiting, Diarrhea, Constipation Physical Exam - Reviewed Nursing Documentation Reviewed: Yes Vital Signs Reviewed: Yes - Physical Exam Appears: Positive for: Non-toxic, No Acute Distress Head Exam: Positive for: ATRAUMATIC, NORMAL INSPECTION, NORMOCEPHALIC Skin: Positive for: Normal Color, Warm, Dry Eye Exam: Positive for: EOMI, Normal appearance, PERRL Neck: Positive for: Normal, Painless ROM, Supple Cardiovascular/Chest: Positive for: Regular Rate, Rhythm. Negative for: Murmur Respiratory: Positive for: Normal Breath Sounds. Negative for: Respiratory Distress Gastrointestinal/Abdominal: Positive for: Tenderness (epigastric tenderness). Negative for: Distended, Guarding Extremity: Positive for: Normal ROM (x 4). Negative for: Deformity Neurologic/Psych: Positive for: Alert, Oriented (x 3). Negative for: Motor/Sensory Deficits - Laboratory Results Result Diagrams: 06/07/18 21:42 06/07/18 21:42 Lab Results: Total Bilirubin 0.2 mg/dl (0.2-1.3) 06/07/18 21:42 AST 30 U/L (17-59) 06/07/18 21:42 ALT 21 U/L (21-72) D 06/07/18 21:42 Alkaline Phosphatase 80 U/L (38-126) 06/07/18 21:42 Total Protein 8.0 G/DL (6.3-8.2) 06/07/18 21:42 Albumin 4.4 g/dL (3.5-5.0) 06/07/18 21:42 Globulin 3.6 gm/dL (2.2-3.9) 06/07/18 21:42 Albumin/Globulin Ratio 1.2 (1.0-2.1) 06/07/18 21:42 Lipase 176 U/L (23-300) 06/07/18 21:42 - ECG O2 Sat by Pulse Oximetry: 99 (RA) Pulse Ox Interpretation: Normal Medical Decision Making Medical Decision Makin:41 MDM: 67 year old with HTN presenting with vague abdominal and chest pain Symptoms are atypical for cardiac related chest pain Possibly GERD, gastritis or pancreatitis Not concerned for biliary pathology given no right upper quadrant tenderness Will check blood work and reevaluate Orders: --EKG --Alcohol serum --CBC --CMP --CXR --Lipase --UA --Troponin --Pepcid 20 mg IVP 1145PM Explained results to patient using [employer] Interpeter States he's feeling better Advised daily PPI and followup with PMD Very well appearing upon discharge Scribe Attestation: Documented by Haley Chavez acting as a scribe for Casey Bailon MD Provider Scribe Attestation: All medical record entries made by the Scribe were at my direction and personally dictated by me. I have reviewed the chart and agree that the record accurately reflects my personal performance of the history, physical exam, medical decision making, and the department course for this patient. I have also personally directed, reviewed, and agree with the discharge instructions and disposition. Disposition - Clinical Impression Clinical Impression: Gastritis - Disposition Referrals: Roxie Pappas MD [Staff Provider] - Disposition: Routine/Home Disposition Time: 23:59 Condition: STABLE Prescriptions: Omeprazole 20 mg PO DAILY #30 capsule.dr Instructions: Gastritis Forms: [facility] (Eritrean) Print Language: SWEDISH
[2018-06-07 23:39] LABS: URINE BILIRUBIN NEGATIVE (NEGATIVE); URINE BLOOD NEGATIVE (NEGATIVE); URINE CLARITY CLEAR (Clear); URINE COLOR STRAW (YELLOW); URINE GLUCOSE (UA) NEG (NEGATIVE); URINE LEUKOCYTE ESTERASE NEG Leu/uL (Negative); URINE PROTEIN NEGATIVE (NEGATIVE); URINE UROBILINOGEN 0.2-1.0 mg/dL (0.2-1.0)
--- NOTE | 2018-06-08 07:24 | CARD ---
APPROVED REPORT Date of service: 06/07/2018 EKG Measurement Heart [id number] [place] 126P82 [id number] <Conclusion> Normal sinus rhythm Normal ECG
--- NOTE | 2018-06-08 09:40 | RAD ---
Date of service: 06/07/2018 HISTORY: HX of HTN, ETOH abuse, CP and Abd pain COMPARISON: Chest radiographs 06/29/2017. TECHNIQUE: Chest PA and lateral FINDINGS: LUNGS: Hyperinflation again may indicate COPD. Clinically correlate. No acute infiltrate bilaterally nevertheless. PLEURA: No significant pleural effusion identified. No pneumothorax apparent. CARDIOVASCULAR: No aortic atherosclerotic calcification present. Normal cardiac size. No pulmonary vascular congestion. OSSEOUS STRUCTURES: No significant abnormalities. VISUALIZED UPPER ABDOMEN: Normal. OTHER FINDINGS: None. IMPRESSION: No interval acute cardiopulmonary disease appreciated. COPD pattern again in question.
== END 2018-06-08 00:12 | disposition home or self-care (01) ==
LOC: H.ER 19:56
DX: K29.70 Gastritis, unspecified, without bleeding (principal); I10 Essential (primary) hypertension